=== PATIENT | male | born 1970 | race Caucasian/White ===

== ENCOUNTER 2018-02-19 23:58 | Emergency (ER) | payer OTHER ==
[~2018-02-19] VITALS: Ht 180.3 cm; Wt 90.7 kg
[~2018-02-19 23:58] MED LIST: ACYCLOVIR 800800 MG PO; ALBUTEROL INH INH; AMOX TR-K CLV1 EAC4; ATIVAN1 MG PO; AUGMENTIN 875875 MG PO; AZITHROMYCIN 2250 MG; BACTRIM DS TAB1 EACH PO; BENZONATATE100 MG PO; BUTALB-APAP-CA1 EACH PO; CARAFATE 1 GM TA1 GM PO; CHERATUSSIN DA480 ML PO; DAYPRO600 MG PO; DIOVAN; DIOVAN HCT 3201 EACH PO; DIPHENHIST50 MG PO; DOXYCYCLINE 10100 MG PO; FENTANYL PA12 MCG/H1 TP; IMITREX 50 MG T50 M1; KEFLEX500 MG PO; MEDROL DOSPAK21 TA1 PO; MEDROLDOSEPACK PO; MOBIC; MOBIC15 MG; MOBIC15 MG PO; MUCINEX DM TABL1 TA1; NASONEX17 GM; NORCO 5-325 TA1 EACH PO; NORFLEX100 MG PO; PERCOCET 5-3251 EACH PO; PHENERGAN 25 MG25 MG PO; PHENERGAN25 M1 RECTAL; PREDNISONE 20 M20 M1 PO; PREVACID30 MG PO; PROTONIX; PROTONIX PO; PROTONIX40 M1 PO; PROTONIX40 M2 PO; SILVADENE20 GM TP; TESTOSTERONE; ULTRAM 50MG TAB50 MG; XANAX 1 MG TABLE1 MG PO; ZANTAC; ZANTAC 150MG T150 M1 PO; ZANTAC 150MG T150 MG; ZITHROMAX TRI-500 MG PO; ZOFRAN; ZOFRAN 4 MG ORAL4 M1 DIS; ZOFRAN ODT4 MG PO; ZOFRAN4 MG PO; ZPAK; ZPAK PO; ZYRTEC 10 MG TA10 MG
[2018-02-20 00:24] LABS: URINE BILIRUBIN NEGATIVE (Negative); URINE BLOOD TRACE (Negative); URINE CLARITY CLEAR; URINE COLOR YELLOW; URINE GLUCOSE-RANDOM NEGATIVE (Negative); URINE KETONES NEGATIVE (Negative); URINE LEUKOCYTES-REFLEX NEGATIVE (Negative); URINE NITRITE-REFLEX NEGATIVE (Negative); URINE PROTEIN NEGATIVE (Negative); URINE SPECIFIC GRAVITY 1.025 (1.005-1.030); URINE UROBILINOGEN 0.2 E.U./dl (0.2-1.0)
[2018-02-20 00:35] LABS: ABSOLUTE BASOPHILS 0.1 thou/uL (0.0-0.2); ABSOLUTE EOSINOPHILS 0.2 thou/uL (0.0-0.7); ABSOLUTE LYMPHOCYTES 3.6 thou/uL (0.8-5.3); ABSOLUTE MONOCYTES 1.2 thou/uL (0.0-1.2); ABSOLUTE NEUTROPHILS 6.2 thou/uL (1.6-8.1); EOSINOPHILS 1.5 %; HEMOGLOBIN 15.8 gm/dL (14.0-18.0); MCH 32.4 pg (26.0-34.0); MCHC 34.4 g/dL (28.0-37.0); MCV 94.2 fL (80.0-100.0); MONOCYTES 10.4 %; MPV 7.2 fl. (7.2-11.1); NUCLEATED RBCS 0 /100WBC; PLATELET COUNT* 315 thou/uL (150-400); POLYS 55.1 %; RBC 4.88 mil/uL (4.50-6.00); RDW-CV 14.6 % (10.5-14.5); WBC 11.2 thou/uL (4.0-11.0)
[2018-02-20 00:43] LABS: APTT 26.8 Seconds (25.0-31.3); CALCIUM 9.3 mg/dL (8.5-10.1); CREATININE 1.6 mg/dL (0.6-1.3); INR 1.1; POTASSIUM 4.3 mmol/L (3.5-5.1); PROTIME 10.6 Seconds (9.20-11.50)
[2018-02-20] MEDS ORDERED: FLEXERIL PO (00:44)
[2018-02-20 00:59] LABS: ALBUMIN 3.9 g/dL (3.4-5.0); TOTAL BILIRUBIN 0.7 mg/dL (<0.1-1.0); TOTAL PROTEIN 7.6 g/dL (6.4-8.2)
[2018-02-20 01:23] VITALS: BP 122/76
--- NOTE | 2018-02-20 16:17 | EKG ---
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 : 1970 Requested By: Desmond Yarbrough Order Number: [id number] MD: Darrin Solis Measurements Intervals [place] Rate: 75 P: 45 DE: 182 QRS: 9 QRSD: 102 T: 28 QT: 375 QTc: 419 Interpretive Statements Sinus rhythm Baseline wander in lead(s) II,aVR,aVF,V2,V3 Compared to ECG 05/12/2014 11:59:02 No significant changes Electronically Signed On 02-20-2018 16:17:03 CDT by Darrin Solis [email or web address] <ELECTRONICALLY SIGNED> By: Darrin Solis MD, [facility] 02/20/18 1617 0016 0016 Darrin Solis MD, FAC /EPI
== END 2018-02-20 01:27 | disposition home or self-care (01) ==
LOC: M.ERS 23:58
PROVIDERS: Family Medicine
DX: M79.1 Myalgia (principal); I10 Essential (primary) hypertension; G43.909 Migraine, unspecified, not intractable, without status migrainosus; K21.9 Gastro-esophageal reflux disease without esophagitis; Z88.6 Allergy status to analgesic agent; Z88.5 Allergy status to narcotic agent

== ENCOUNTER 2021-06-29 00:58 | Emergency (ER) | payer OTHER ==
[~2021-06-29] VITALS: Ht 180.3 cm; Wt 93.0 kg
[~2021-06-29 00:58] MED LIST changes: +FLEXERIL PO
[2021-06-29] MEDS ORDERED: FAMOTIDINE 10 M10 MG PO (01:32)
[2021-06-29 04:08] LABS: HEMATOCRIT 47.3 % (42.0-52.0); HEMOGLOBIN 16.2 gm/dL (14.0-18.0); MCH 31.3 pg (26.0-34.0); MCHC 34.2 g/dL (28.0-37.0); MCV 91.4 fL (80.0-100.0); MPV 7.8 fl. (7.2-11.1); NUCLEATED RBCS 0 /100WBC; PLATELET COUNT* 296 thou/uL (150-400); RBC 5.18 mil/uL (4.50-6.00); RDW-CV 13.7 % (10.5-14.5); WBC 9.2 thou/uL (4.0-11.0)
[2021-06-29 04:16] LABS: CALCIUM 8.8 mg/dL (8.5-10.1); CREATININE 1.5 mg/dL (0.6-1.3); POTASSIUM 3.7 mmol/L (3.5-5.1)
[2021-06-29 04:21] LABS: ALBUMIN 4.3 g/dL (3.4-5.0); TOTAL BILIRUBIN 1.3 mg/dL (<0.1-1.0); TOTAL PROTEIN 7.7 g/dL (6.4-8.2)
[2021-06-29] MEDS ORDERED: ZOFRAN ODT4 MG PO (06:01)
[2021-06-29 06:11] VITALS: BP 101/67
[2021-06-29 06:14] LABS: ABSOLUTE BASOPHILS 0.1 thou/uL (0.0-0.2); ABSOLUTE EOSINOPHILS 0.1 thou/uL (0.0-0.7); ABSOLUTE LYMPHOCYTES 2.4 thou/uL (0.8-5.3); ABSOLUTE MONOCYTES 0.7 thou/uL (0.0-1.2); ABSOLUTE NEUTROPHILS 5.9 thou/uL (1.6-8.1); BASOPHILS 1.2 %; EOSINOPHILS 1.4 %; LYMPHOCYTES 25.6 %; MONOCYTES 7.8 %
== END 2021-06-29 06:11 | disposition home or self-care (01) ==
LOC: M.ERS 00:58
PROVIDERS: Emergency Medicine
DX: R11.10 Vomiting, unspecified (principal); Z20.822 Contact with and (suspected) exposure to COVID-19; I10 Essential (primary) hypertension; G43.909 Migraine, unspecified, not intractable, without status migrainosus; Z88.6 Allergy status to analgesic agent; Z88.5 Allergy status to narcotic agent; Z88.1 Allergy status to other antibiotic agents; Z79.899 Other long term (current) drug therapy; Z87.442 Personal history of urinary calculi

== ENCOUNTER 2021-10-13 09:24 | Emergency (ER) | payer OTHER ==
[~2021-10-13] VITALS: Ht 182.9 cm; Wt 93.0 kg
[~2021-10-13 09:24] MED LIST changes: +FAMOTIDINE 10 M10 MG PO
[2021-10-13 10:06] LABS: ABSOLUTE EOSINOPHILS 0.3 thou/uL (0.0-0.7); ABSOLUTE LYMPHOCYTES 1.8 thou/uL (0.8-5.3); ABSOLUTE MONOCYTES 0.8 thou/uL (0.0-1.2); BASOPHILS 0.6 %; EOSINOPHILS 4.4 %; HEMOGLOBIN 15.6 gm/dL (14.0-18.0); LYMPHOCYTES 26.2 %; MCH 31.1 pg (26.0-34.0); MCV 91.5 fL (80.0-100.0); MONOCYTES 11.1 %; NUCLEATED RBCS 0 /100WBC; PLATELET COUNT* 247 thou/uL (150-400); POLYS 57.7 %; RBC 5.03 mil/uL (4.50-6.00); RDW-CV 14.3 % (10.5-14.5)
[2021-10-13 10:14] LABS: CALCIUM 8.6 mg/dL (8.5-10.1); CREATININE 1.3 mg/dL (0.6-1.3)
[2021-10-13 10:18] LABS: ALBUMIN 3.5 g/dL (3.4-5.0); TOTAL BILIRUBIN 0.8 mg/dL (<0.1-1.0); TOTAL PROTEIN 7.2 g/dL (6.4-8.2)
--- NOTE | 2021-10-13 11:18 | EKG ---
[place] [address] ELECTROCARDIOGRAM REPORT Name: EVANGELINA BUTT Room: [facility]#: [id number] Admission: 10/13/21 Attend Phys: Discharge: Date of : 68 Date of Service: 10/13/2148 Report #: [id number] THIS REPORT FOR: //name// 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: : 1970 Requested By: Mtichel Blank Order Number: [id number] MD: Jay Kinsey Measurements Intervals [place] Rate: 63 P: 14 MO: 202 QRS: 17 QRSD: 86 T: 38 QT: 397 QTc: 407 Interpretive Statements Sinus rhythm Borderline prolonged MO interval Compared to ECG 02/20/2018 00:16:09 No significant changes Electronically Signed On 10-13-2021 11:18:11 [employer] by Jay Kinsey [email or web address] <ELECTRONICALLY SIGNED> By: Jay Kinsey MD, [facility] 10/13/21 1118 7 Jay Kinsey MD, [facility] /EPI
[2021-10-13] MEDS ORDERED: CARAFATE1 GM PO (11:24)
[2021-10-13] MEDS ORDERED: ZOFRAN ODT4 MG DISSOLVE (11:24)
[2021-10-13 11:56] VITALS: BP 115/77
== END 2021-10-13 11:57 | disposition home or self-care (01) ==
LOC: M.ERS 09:24
PROVIDERS: Emergency Medicine Emergency Medical Services
DX: R10.13 Epigastric pain (principal); I10 Essential (primary) hypertension; G43.909 Migraine, unspecified, not intractable, without status migrainosus; K21.9 Gastro-esophageal reflux disease without esophagitis; Z90.49 Acquired absence of other specified parts of digestive tract; Z79.899 Other long term (current) drug therapy; Z88.6 Allergy status to analgesic agent; Z88.0 Allergy status to penicillin; Z88.5 Allergy status to narcotic agent

== ENCOUNTER 2021-10-16 16:50 | Observation (INO) | payer OTHER ==
[~2021-10-16] VITALS: Ht 182.9 cm; Wt 93.0 kg
--- NOTE | ~2021-10-16 | PROC ---
[facility] [address] [place] [address] PROCEDURE REPORT Name: EVANGELINA BUTT Room: [address] Asim Stokes#: [id number] Admission: 10/16/21 Attend Phys: Tahira Shea Discharge: 10/18/21 Date of : [birth year] Report #: [id number] THIS REPORT FOR: cc: Antelmo Clifford MD, Matthew W. MD [facility],Medical Records Staff ~ For GI report, please see the Provation report in Perceptive 7 content. By: 1459Medical Records Staff HENNA /LILI
[~2021-10-16 16:50] MED LIST changes: +CARAFATE1 GM PO; +ZOFRAN ODT4 MG DISSOLVE
[2021-10-16 17:02] VITALS: BP 108/80
[2021-10-16 17:34] LABS: ABSOLUTE BASOPHILS 0.1 thou/uL (0.0-0.2); ABSOLUTE EOSINOPHILS 0.3 thou/uL (0.0-0.7); ABSOLUTE MONOCYTES 0.9 thou/uL (0.0-1.2); ABSOLUTE NEUTROPHILS 5.3 thou/uL (1.6-8.1); BASOPHILS 0.8 %; EOSINOPHILS 3.3 %; HEMATOCRIT 44.7 % (42.0-52.0); HEMOGLOBIN 15.1 gm/dL (14.0-18.0); LYMPHOCYTES 23.4 %; MCH 31.1 pg (26.0-34.0); MCHC 33.7 g/dL (28.0-37.0); MCV 92.2 fL (80.0-100.0); MONOCYTES 10.1 %; MPV 7.3 fl. (7.2-11.1); NUCLEATED RBCS 0 /100WBC; PLATELET COUNT* 280 thou/uL (150-400); POLYS 62.4 %; RBC 4.85 mil/uL (4.50-6.00); RDW-CV 14.2 % (10.5-14.5); WBC 8.5 thou/uL (4.0-11.0)
[2021-10-16 17:36] LABS: CALCIUM 8.3 mg/dL (8.5-10.1); CREATININE 1.5 mg/dL (0.6-1.3); POTASSIUM 3.4 mmol/L (3.5-5.1)
[2021-10-16 17:40] LABS: ALBUMIN 3.4 g/dL (3.4-5.0); TOTAL BILIRUBIN 0.9 mg/dL (<0.1-1.0)
[2021-10-16 18:18] LABS: URINE BILIRUBIN NEGATIVE (Negative); URINE BLOOD NEGATIVE (Negative); URINE CLARITY CLEAR; URINE COLOR YELLOW; URINE GLUCOSE-RANDOM NEGATIVE (Negative); URINE KETONES NEGATIVE (Negative); URINE LEUKOCYTES-REFLEX NEGATIVE (Negative); URINE NITRITE-REFLEX NEGATIVE (Negative); URINE PROTEIN TRACE (Negative)
[2021-10-16 18:26] LABS: AMP/METHAMP Negative (Negative); BARBITURATES Negative (Negative); BENZODIAZEPINES Negative (Negative); COCAINE Negative (Negative); METHADONE Negative (Negative); OPIATES Negative (Negative); PCP Negative (Negative); THC Negative (Negative)
[2021-10-16 22:22] VITALS: BP 110/54
[2021-10-17 02:15] VITALS: BP 108/60
[2021-10-17 06:21] VITALS: BP 101/64
--- NOTE | 2021-10-17 09:13 | EKG ---
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 : 1970 Requested By: Mitchel Blank Order Number: [id number] MD: Jay Kinsey Measurements Intervals [place] Rate: 73 P: 30 AL: 206 QRS: 20 QRSD: 93 T: 35 QT: 368 QTc: 406 Interpretive Statements Sinus rhythm Borderline prolonged [place] interval Low voltage, precordial leads Compared to ECG 10/13/2021 09:48:42 Low QRS voltage now present Electronically Signed On 10-17-2021 9:13:02 YEAST PUMPER by Jay Kinsey [email or web address] <ELECTRONICALLY SIGNED> By: Jay Kinsey MD, FAC 10/17/21 0913 1718 1718 Jay Kinsey MD, [facility] /EPI
[2021-10-17 10:30] VITALS: BP 109/74
--- NOTE | 2021-10-17 10:33 | NUR ---
cm completed an assessment with pt and , who was at bedside. pt lives in home with . pt is active with [facility]. pt has no dmes. pt has no hx with [facility] or snf. 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
[2021-10-17 12:47] VITALS: BP 107/73
[2021-10-17] MEDS ORDERED: LEXAPRO 10 MG T10 M1 PO (17:12)
[2021-10-17 19:30] VITALS: BP 100/62
[2021-10-18 04:47] LABS: HEMOGLOBIN 13.5 gm/dL (14.0-18.0); MCH 31.4 pg (26.0-34.0); MCHC 34.5 g/dL (28.0-37.0); MCV 90.8 fL (80.0-100.0); MPV 7.5 fl. (7.2-11.1); RBC 4.29 mil/uL (4.50-6.00); WBC 6.7 thou/uL (4.0-11.0)
[2021-10-18 04:48] LABS: CALCIUM 7.9 mg/dL (8.5-10.1); CREATININE 1.2 mg/dL (0.6-1.3); MAGNESIUM 1.9 mg/dL (1.8-2.4); POTASSIUM 3.6 mmol/L (3.5-5.1)
--- NOTE | 2021-10-18 05:35 | NUR ---
PT ARRIVED ONTO UNIT AT 1930 FROM PACU. ALERT AND ORIENTED. PLEASANT. PT ATE DINNER AND HAD A LITTLE INDIGESTION BUT NO NAUSEA AND VOMITING. DENIED ANY PAIN. NPO AFTER MIDNITE FOR GASTRIC EMPTYING TEST TODAY. UP TO BATHROOM. IV NS AT 100 CC/HR TO RIGHT HAND. SLEPT MOST OF THE NIGHT. CALL LIGHT IN REACH.
[2021-10-18 08:00] VITALS: BP 103/72
[2021-10-18 10:27] VITALS: BP 103/72
[2021-10-18 10:50] VITALS: BP 103/72
--- NOTE | 2021-10-19 14:07 | PATH ---
[address] [address] PATHOLOGY RPT PROCEDURE Name: EVANGELINA GARZA Room: [address] Asim Stokes#: [id number] Admission: 10/16/21 Date of : 68 Discharge: 10/18/21 Report #: [id number] Path Case #: [id number] [facility] Accession Number: [id number] . 01 Material submitted: . duodenum - DUODENAL BIOPSY . 01 Clinical history: . EGD IN OR . 02 Diagnosis: Duodenal biopsy: - Benign small intestinal mucosa with mild intraepithelial lymphocytosis, negative for granulomas, cryptitis, and dysplasia. See comment. (SUSAN:pit; 10/19/2021) QTP 10/19/2021 1137 Local . 02 Comment: The biopsies show small intestinal mucosa with a mild increase of lymphoplasmacytic infiltrate in the lamina propria in association with mild intraepithelial lymphocytosis also noted to focally involve the villous tips, without significant villous atrophy. This is a nonspecific finding which could be related to the use of non-steroidal anti-inflammatory medications, infections, autoimmune enteropathy, and early celiac disease. (SUSAN:pit; 10/19/2021) . 02 Electronically signed: . Yunior Culp MD, Pathologist NPI- [id number] . 01 Gross description: . The specimen is received in formalin, labeled "Evangelina Garza, duodenal biopsy" and consists of 3 wiggins irregular tissues aggregating 0.6 x 0.5 x 0.2 cm which are submitted in toto in A1.([place]; 10/18/2021) DKA/DKA 10/18/2021 1017 Local . 02 Pathologist provided ICD-10: D72.820 . 02 CPT . 657431 Specimen Comment: A courtesy copy of this report has been sent to [phone], [phone] Specimen Comment: 1975, Specimen Comment: Report sent to , DR MAGAÑA / DR LO Performed at: 01 [place] [address] PATHOLOGY RPT PROCEDURE Name: EVANGELINA GARZA Room: [address] MYas#: [id number] Admission: 10/16/21 Date of : [birth year] Discharge: 10/18/21 Report #: [id number] Path Case #: [id number] [address], [place] [id number] MD Gilmar Reynoso MD Phone: [phone] Performed at: 02 [facility] [address], [place], [place] [id number] MD Yunior Culp MD Phone: [phone]
--- NOTE | 2021-10-19 17:23 | CON ---
[address] [address] CONSULTATION Name: EVANGELINA BUTT Room: [address] Asim Stokes#: [id number] Admission: 10/16/21 Attend Phys: Tahira Shea Discharge: 10/18/21 Date of : [birth year] Report #: [id number] THIS REPORT FOR: cc: Antelmo Clifford MD, Matthew W. MD Namin, Farid M. MD ~ cc: Antelmo Clifford MD DATE OF CONSULTATION: 10/17/2021 PRIMARY CARE PHYSICIAN: Antelmo Clifford MD Please note at the time of this dictation, the patient was seen and physically examined by myself. REASON FOR CONSULTATION: Recurrent nausea, vomiting, abdominal pain, abdominal distention, bloating. HISTORY OF PRESENT ILLNESS: This is a 50-year-old male who presented to the Emergency Room who had presented here 2 days prior with similar complaints of nausea, vomiting, abdominal pain, gas and bloating that prior to his first admission to the ER two days ago in which he had a complete workup that was essentially negative. He was sent home at that time. He states prior to that first admission two days ago on Sunday, he states 2 weeks prior to that is when he has been having these recurrent symptoms that have progressively gotten worse. He states it feels like something is burning in his stomach at all times. He denies taking any NSAIDs as well. He states when he vomited, it was only bile. No bright red blood or any coffee-ground emesis noted. He has also been having a lot of flatulence along with bloating and pain with the burning. He states that despite taking antiemetics over his last ER visit, he was still unable to keep anything down, prompting him to come in to be seen. The patient states also prior to his first admission two days ago, his bowel habits normal, he goes daily, soft and formed without any evidence of any bright red blood or melena; however, since his oral intake has diminished with his ongoing symptoms, his bowel habits have changed and they are not as frequent and as much and more softer. The patient did have an EGD back in 2016 that showed grade B esophagitis, small hiatal hernia and he had multiple gastric polyps that were noted. Last colonoscopy was done in 2007, internal hemorrhoids and a history of colon polyps. ALLERGIES: ASPIRIN, IBUPROFEN, FENTANYL AND HYDROMORPHONE. MEDICATIONS FROM HOME: He has been taking Zofran, Protonix b.i.d., and famotidine, and he takes Diovan at home and just started on Carafate over his last admission, which was of no help, [place] [address] CONSULTATION Name: EVANGELINA BUTT Room: [address] Asim Stokes#: [id number] Admission: 10/16/21 Attend Phys: Tahira Shea Discharge: 10/18/21 Date of : 68 Report #: [id number] PAST MEDICAL HISTORY: GERD, history of low potassium, migraines, kidney stones, hypertension. PAST SURGICAL HISTORY: Shoulder, elbow, back and hip surgery along with an appendectomy. FAMILY HISTORY: Negative for any GI or female cancers. SOCIAL HISTORY: He does not drink alcohol, he has got a past history. No recreational drug use. Does not smoke. 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 REVIEW OF SYSTEMS: Twelve-point review of systems is essentially negative except what is mentioned in the HPI. PHYSICAL EXAMINATION: VITAL SIGNS: Temperature 36.7, pulse 74, respirations 14, blood pressure 110/70. HEART: Regular rate and rhythm. LUNGS: Clear. ABDOMEN: Soft, positive bowel sounds in all four quadrants with tenderness noted in the mid to upper quadrant area. LABORATORY DATA: White count is 8.5, hemoglobin is 15.1, platelets 280. Potassium 3.4. GFR is 49. LFTs are completely normal. Lipase is normal at 138. Tox screen is completely negative. The patient had a CT of the abdomen and pelvis, gallbladder is present, unremarkable. Liver shows fatty infiltration. No ductal dilatation noted. Pancreas, mild pancreatic atrophy. Stomach showed a small amount of fluid in the stomach, small bowel essentially normal. Colon, moderate stool noted, otherwise negative. IMPRESSION: 1. Nausea and vomiting, recurrent. 2. Gastroesophageal reflux disease despite medications. 3. Abdominal pain. 4. Bloating and gas. 5. Fatty liver. 6. Chronic kidney disease. PLAN: 1. EGD today with Dr. Katz. 2. If the above is negative, consider treatment for small bowel bacterial overgrowth of Flagyl only. Secondary to his GFR, we would not give him neomycin. [address] [address] CONSULTATION Name: EVANGELINA BUTT Room: [address] Asim Stokes#: [id number] Admission: 10/16/21 Attend Phys: Tahira Shea Discharge: 10/18/21 Date of : 68 Report #: [id number] 3. Outpatient colonoscopy once he is over this. 4. Further recommendations to be made once the procedure has been performed. Thank you for allowing us to participate in this patient's care. Please do not hesitate to call with any questions regarding this consult. <ELECTRONICALLY SIGNED> By: Alber Katz MD 10/19/21 1723 0927 1009Alber Katz MD /gege
== END 2021-10-18 10:45 | disposition home or self-care (01) ==
LOC: M.ERS 16:50 → M.TBA-ER 18:47 → M.3W 10-17 19:44
PROVIDERS: Emergency Medicine Emergency Medical Services; Internal Medicine; ADMIT Internal Medicine; ATTEND Internal Medicine
DX: K52.9 Noninfective gastroenteritis and colitis, unspecified (principal); Z20.822 Contact with and (suspected) exposure to COVID-19; R11.2 Nausea with vomiting, unspecified; K21.9 Gastro-esophageal reflux disease without esophagitis; G43.909 Migraine, unspecified, not intractable, without status migrainosus; I12.9 Hypertensive chronic kidney disease with stage 1 through stage 4 chronic kidney disease, or unspecified chronic kidney disease; N18.30 Chronic kidney disease, stage 3 unspecified; N17.9 Acute kidney failure, unspecified; Z98.890 Other specified postprocedural states; Z88.8 Allergy status to other drugs, medicaments and biological substances; Z88.1 Allergy status to other antibiotic agents